=== PATIENT | female | born 1990 | race Caucasian/White ===

== ENCOUNTER 2018-11-26 12:05 | Emergency (ER) | payer OTHER ==
[~2018-11-26] VITALS: Ht 175.3 cm; Wt 59.1 kg
[2018-11-26 12:22] VITALS: Ht 175.3 cm; Wt 59.1 kg
--- NOTE | 2018-11-26 13:22 | ERD ---
ER Documentation Chief Complaint Chief Complaint CARLOS w/ c/o NGUYEN USED KITCHEN KNIFE TO CUT LEFT FOREARM SUPERFICIAL HPI This is a 20-year-old female with past medical history of depression and self- inflicted cutting. The patient is on Prozac. The patient has a psychiatrist who she sees on a regular basis. The patient states she has been cutting her left forearm for many years. She has addressed this with her psychiatrist and s he states she has never had any suicidal thoughts or ideations. She cuts when she is frustrated as she states it makes her feel better. Earlier today the patient indicated she got in a verbal argument with her boyfriend over the phone. She has been with her boyfriend for 3 years. They have been living together for a year and a half. She indicates that been undergoing a significant amount of stress as the patient underwent an elective 2 weeks prior to arrival. She indicates also having financial difficulties. She stated she was very tearful and yelling. Neighbors became concerned and phone 911. The patient stated when she got off the phone with her boyfriend she started cutting with a kitchen knife. She stated she never wanted to hurt herself by committing suicide. She stated that she heard knocking at the door and it was [employer]. She did not want to let them in. Therefore they broke into the home and found the patient holding a kitchen knife. She stated she was usin g a kitchen knife with her right hand as she is right-handed dominant to cut her left arm. The officers asked to see her arm and she did not want to show it to them. Therefore she indicated she was placed in handcuffs. Again the patient is very adamant that she never had any suicidal or homicidal thoughts or ideations. She stated the self-inflicted cutting makes her feel better which is why she was doing this after she got in a verbal altercation. She states she is never been placed on a 5150 nor has she ever gone to a psychiatric hospital. ROS All systems reviewed and are negative except as per history of present illness. Medications Home Meds Reported Medications Fluoxetine Hcl* (Prozac*) 10 Mg Capsule, 10 MG PO DAILY, CAP 11/26/18 Allergies Allergies: Coded Allergies: No Known Allergy (Unverified , 11/26/18) PMhx/Soc Medical and Surgical Hx: pt denies Medical Hx History of Surgery: Yes (cesction) Hx Alcohol Use: Yes Hx Substance Use: No Hx Tobacco Use: Yes Smoking Status: Current some day smoker Physical Exam Vitals Vital Signs Date Temp Pulse Resp B/P (MAP) Pulse Ox O2 O2 Flow FiO2 Time Delivery Rate 11/26/18 98.7 75 18 107/79 96 12:22 (88) Physical Exam Constitutional:Well-developed. Well-nourished. HEENT:Normocephalic. Atraumatic.Pupils were equal round reactive to light. Moist mucous membranes.No tonsillar exudates. Neck: No nuchal rigidity. No lymphadenopathy. No posterior cervical spine tenderness or step-offs. Respiratory: Not using accessory muscles of respiration.Lungs were clear to auscultation bilaterally. No rhonchi. No rales. No wheezing. Cardiovascular: Regular rate regular rhythm.No murmurs. No rubs were appreciated.S1, S2 normal. Distal pulses are palpable 2+ bilaterally. GI: Abdomen was soft. Nontender. Non Distended. No pulsatile abdominal masses or bruits. No rebound. No guarding. Bowel sounds were present and normal. Muscle skeletal: Full range of motion of both the upper and lower extremities bilaterally.Normal muscle tone.No assymetrical calf tenderness or swelling. Skin: No petechia, no purpura. No lesions on the palms or the soles of the feet. No maculopapular rash. Roughly 30 superficial lacerations on the flexor surface of the left forearm. There is underlying scars from previous cutting. NEURO: Patient was alert, awake, orientated x3.No facial droop. Gait observed and normal with no ataxia.Speech had regular rate and rhythm. No focal neurological deficits. PSYCH: Patient denied any suicidal homicidal thoughts ideations. Patient made good eye contact. She answers all questions appropriately. She did not appear guarded. Result Diagram: 11/26/18 1250 11/26/18 1250 Results 24 hrs Laboratory Tests Test 11/26/18 12:50 11/26/18 13:41 11/26/18 13:44 White Blood Count 5.6 10^3/ul Red Blood Count 4.33 10^6/ul Hemoglobin 12.3 g/dl Hematocrit 37.8 % Mean Corpuscular Volume 87.3 fl Mean Corpuscular Hemoglobin 28.4 pg Mean Corpuscular 32.5 g/dl Hemoglobin Concent Red Cell Distribution Width 14.6 % Platelet Count 318 10^3/UL Mean Platelet Volume 8.9 fl Immature Granulocytes % 0.200 % Neutrophils % 75.5 % Lymphocytes % 16.8 % Monocytes % 5.0 % Eosinophils % 1.8 % Basophils % 0.7 % Nucleated Red Blood Cells % 0.0 /100WBC Immature Granulocytes # 0.010 10^3/ul Neutrophils # 4.2 10^3/ul Lymphocytes # 0.9 10^3/ul Monocytes # 0.3 10^3/ul Eosinophils # 0.1 10^3/ul Basophils # 0.0 10^3/ul Nucleated Red Blood Cells # 0.0 10^3/ul Sodium Level 143 mmol/L Potassium Level 4.4 mmol/L Chloride Level 111 mmol/L Carbon Dioxide Level 24 mmol/L Anion Gap 8 Blood Urea Nitrogen 11 mg/dl Creatinine 0.73 mg/dl Est Glomerular Filtrat > 60 mL/min Rate mL/min Glucose Level 92 mg/dl Calcium Level 9.9 mg/dl Total Bilirubin 0.3 mg/dl Direct Bilirubin 0.00 mg/dl Indirect Bilirubin 0.3 mg/dl Aspartate Amino Transf (AST/SGOT) 23 IU/L Alanine 12 IU/L Aminotransferase (ALT/SGPT) Alkaline Phosphatase 66 IU/L Total Protein 7.8 g/dl Albumin 4.4 g/dl Globulin 3.40 g/dl Albumin/Globulin Ratio 1.29 Beta HCG, Quantitative 103.6 mIU/ml Salicylates Level < 1.0 mg/dl Acetaminophen Level < 10.0 ug/ml Ethyl Alcohol Level < 10.0 mg/dl Urine Color YELLOW Urine Clarity CLOUDY Urine pH 9.0 Urine Specific [place] 1.017 Urine Ketones TRACE mg/dL Urine Nitrite NEGATIVE mg/dL Urine Bilirubin NEGATIVE mg/dL Urine Urobilinogen NEGATIVE mg/dL Urine Leukocyte Esterase NEGATIVE [place] Urine Microscopic RBC 32 /HPF Urine Microscopic WBC 16 /HPF Urine Squamous Epithelial Cells FEW /HPF Urine Amorphous Crystals FEW /HPF Urine Bacteria FEW /HPF Urine Mucus FEW /HPF Urine Hemoglobin 1+ mg/dL Urine Glucose NEGATIVE mg/dL Urine Total Protein NEGATIVE mg/dl Urine Opiates Screen Negative Urine Barbiturates Negative Urine Amphetamines Screen Negative Urine Benzodiazepines Screen Negative Urine Cocaine Screen Negative Urine Cannabinoids Positive POC Beta HCG, Qualitative POSITIVE Procedures/MDM The patient presented to the emergency department with an active suicidal ideation. My differential diagnosis included but was not limited to major depressive disorder, normal despondency, bipolar disorder, schizophrenia, anxiety disorder, borderline personality disorder, antisocial personality disorder, organic mental disorder, bereavement or alcohol or drug abuse. The patient urine test was positive however the patient just had an elective . Her quantitative beta-hCG was 103. She had no abdominal pain. I felt this was a result of her recent with no concerns for retained products of conception as patient stated she just received an outpatient ultrasound at the clinic which was normal. Ancillary lab work was obtained including blood alcohol level, drug screen and serum toxicology panel. The patient was provided a safe environment while in the emergency department with appropriate supervision. The patient will be seen and evaluated by the tele-psychiatrist. I did not feel the patient was experiencing suicidal thoughts or ideation. However after the telemetry psychiatrist evaluated the patient she was able to get more history. The patient has a son and is currently in the process of moving. The patient was experiencing sadness and hopelessness. Dr. Lane felt that the patient required inpatient psychiatric evaluation and to be placed in a 5150. Therefore at this time the patient is currently waiting for placement given that the patient had already been placed in a 5150 by [employer]. Departure Diagnosis: Primary Impression: Self-inflicted injury Additional Impression: Depression Depression Type: unspecified Qualified Codes: F32.9 - Major depressive disorder, single episode, unspecified Condition: Serious PREMA CARLOS MD November 26, 2018 13:22
[2018-11-26] MEDS ORDERED: FLUO10CA26 PO (14:27)
--- NOTE | 2018-11-26 15:27 | PSY ---
Date/Time of Note Date/Time of Note DATE: 11/26/18 TIME: 15:20 Psychiatric Subjective Eval Consent Pt consented to telemedicine: Yes Subjective Evaluation Chief Complaint: CARLOS w/ c/o SI USED KITCHEN KNIFE TO CUT LEFT FOREARM SUPERFICIAL History of present illness 28 YO single unemployed female [employer] on 5150 for DTS after she made multiple superficial lacerations on her forearm during an argument with her BF. PT denies SI: "I always cut on myself during an argument" But she admits to depressed mood, feeling hopeless. Pt recently had an ; she is moving out of her BF's home iwth her 2 yo son; she has no support system except for her friend Yamel and she thinks, she can stay with her friend, No or . Pt says she cuts herself once a month.She doesnt know if she will cut herself again if released due to the stress of moving out. Past psychiatric history prior inpt for cutting Hospitalization: Suicidal Attempt(s) Family History denies Medical history Problems Medical Problems: (1) Self-inflicted injury Status: Acute Allergies: Coded Allergies: No Known Allergy (Unverified , 11/26/18) Substance Abuse Substance abuse history: Yes Prior substance abuse treatmen: No (thc) Social History Marital status: single Level of education: HS DPA/Conservatorship: No Occupation/Senior Living: unemployed for 2 years Psychiatric Objective Eval Review of Systems: Review of Systems: Not Applicable Physical Examination: Sleep: Insomnia Appetite: Decreased Energy: Decreased Interest: Decreased Mental Status Examination: Appearance: Groomed Eye Contact: Good Behavior: Cooperative Speech: Clear AFFECT: Constricted Mood: Depressed Though Process: Linear Thought Content: Normal Suicidal: Yes Homicidal: No On 72 hour hold: Yes Orientation: x4 Cognition: Alert Insight: Impared Judgement: Impared Laboratory Results Laboratory Tests Test 11/26/18 12:50 11/26/18 13:41 11/26/18 13:44 White Blood Count 5.6 10^3/ul Red Blood Count 4.33 10^6/ul Hemoglobin 12.3 g/dl Hematocrit 37.8 % Mean Corpuscular Volume 87.3 fl Mean Corpuscular Hemoglobin 28.4 pg Mean Corpuscular 32.5 g/dl Hemoglobin Concent Red Cell Distribution Width 14.6 % Platelet Count 318 10^3/UL Mean Platelet Volume 8.9 fl Immature Granulocytes % 0.200 % Neutrophils % 75.5 % Lymphocytes % 16.8 % Monocytes % 5.0 % Eosinophils % 1.8 % Basophils % 0.7 % Nucleated Red Blood Cells % 0.0 /100WBC Immature Granulocytes # 0.010 10^3/ul Neutrophils # 4.2 10^3/ul Lymphocytes # 0.9 10^3/ul Monocytes # 0.3 10^3/ul Eosinophils # 0.1 10^3/ul Basophils # 0.0 10^3/ul Nucleated Red Blood Cells # 0.0 10^3/ul Sodium Level 143 mmol/L Potassium Level 4.4 mmol/L Chloride Level 111 mmol/L Carbon Dioxide Level 24 mmol/L Anion Gap 8 Blood Urea Nitrogen 11 mg/dl Creatinine 0.73 mg/dl Est Glomerular Filtrat > 60 mL/min Rate mL/min Glucose Level 92 mg/dl Calcium Level 9.9 mg/dl Total Bilirubin 0.3 mg/dl Direct Bilirubin 0.00 mg/dl Indirect Bilirubin 0.3 mg/dl Aspartate Amino Transf (AST/SGOT) 23 IU/L Alanine 12 IU/L Aminotransferase (ALT/SGPT) Alkaline Phosphatase 66 IU/L Total Protein 7.8 g/dl Albumin 4.4 g/dl Globulin 3.40 g/dl Albumin/Globulin Ratio 1.29 Beta HCG, Quantitative 103.6 mIU/ml Salicylates Level < 1.0 mg/dl Acetaminophen Level < 10.0 ug/ml Ethyl Alcohol Level < 10.0 mg/dl Urine Color YELLOW Urine Clarity CLOUDY Urine pH 9.0 Urine Specific [place] 1.017 Urine Ketones TRACE mg/dL Urine Nitrite NEGATIVE mg/dL Urine Bilirubin NEGATIVE mg/dL Urine Urobilinogen NEGATIVE mg/dL Urine Leukocyte Esterase NEGATIVE [place] Urine Microscopic RBC 32 /HPF Urine Microscopic WBC 16 /HPF Urine Squamous Epithelial Cells FEW /HPF Urine Amorphous Crystals FEW /HPF Urine Bacteria FEW /HPF Urine Mucus FEW /HPF Urine Hemoglobin 1+ mg/dL Urine Glucose NEGATIVE mg/dL Urine Total Protein NEGATIVE mg/dl Urine Opiates Screen Negative Urine Barbiturates Negative Urine Amphetamines Screen Negative Urine Benzodiazepines Screen Negative Urine Cocaine Screen Negative Urine Cannabinoids Positive POC Beta HCG, Qualitative POSITIVE Assessment and Plan Assessment/Diagnosis Diagnosis UNSPECIFIED MOOD DISORDER Recommendation/Plan Medication Management CONTIUE PROZAC - PLEASE VERIFY THE DOSE. FOR AGITATION: ATIVAN 1-2 MG PO OR IM PRN Q 6 HRS Multiple antipsychotics: Yes Discharge Disposition: Psychiatric inpatient Legal Status: Continue involuntary hold CURTIS OWEN MD November 26, 2018 15:27
[2018-11-26 21:00] VITALS: BP 110/71; PULSE 76; RESP 18
== END 2018-11-26 21:30 ==
LOC: E/R 12:05
DX: S51.812A Laceration without foreign body of left forearm, initial encounter (principal); F32.9 Major depressive disorder, single episode, unspecified; F17.210 Nicotine dependence, cigarettes, uncomplicated; X78.1XXA Intentional self-harm by knife, initial encounter; Y92.009 Unspecified place in unspecified non-institutional (private) residence as the place of occurrence of the external cause
CPT/HCPCS: 80053; 80307; 81001; 81025; 84702; 85025; Z7502; 99285